=== PATIENT | female | born 1990 | race Caucasian/White ===

== ENCOUNTER 2021-03-18 12:35 | Emergency (ER) | payer SELFPAY ==
[2021-03-18 13:25] VITALS: BP 124/87; PULSE 84; RESP 18; TEMP 36.9; O2SAT 97; BMI 25.8
--- NOTE | 2021-03-18 14:22 | CT_ITS ---
WS: [id number] CT HEAD TECHNIQUE: Noncontrast CT of the head obtained from the skullbase to the vertex. CLINICAL INFORMATION: new onset seizures COMPARISON: None. DLP: 899.[address] scans at [facility] use at least one of these dose optimization techniques: automat ed exposure control; mA and/or kV adjustment per patient size (includes targeted exams where dose is matched to clinical indication); or iterative reconstruction. FINDINGS: No evidence of intracranial hemorrhage or mass effect. Ventricular system and basal cisterns are del rosario nt. No extra-axial fluid collections. No evidence of mass or mass effect. Normal araujo-white differen tiation. Paranasal sinuses and mastoid air cells are well aerated. .Normal visualized soft tissues. CT/CT head wo con* [id number] IMPRESSION: 1. No evidence of intracranial hemorrhage or mass effect. 2. No acute intracranial findings.
--- NOTE | 2021-03-18 14:23 | W.ED.GENADLT ---
HPI - General Adult General: Chief complaint: Seizure Stated complaint: SHAKING Time Seen by Provider: 03/18/21 14:03 History of Present Illness: HPI narrative: 40-year-old female presents emergency room with continuous shaking of her right leg. She said it started about 2 hours ago she felt dizzy had shaking in her right arm and leg and then it began to only affect her right leg. It is a continuous uncontrollable tonic-clonic like movement of just that leg. She not previously had a history of seizures. She denies any previous head trauma. Onset (ago): hour(s) (2) Location: right and lower extremity Severity: severe Associated symptoms: Deny no associated symptoms, chest pain, confusion, cough, diaphoresis, decreased appetite, dyspnea, fevers/chills, headache(s), malaise, nausea, rash, palpitations, seizures, short of breath, syncope, vomiting or weakness Treatments prior to arrival: none Review of Systems Const: Denies: malaise or diaphoresis ENMT: Denies: throat pain, ear or mastoid pain, nasal discharge or nasal congestion Card: Denies: chest pain, palpitations or syncope Resp: Denies: dyspnea GI: Denies: nausea or vomiting : Denies: flank pain, difficulty voiding, dysuria, urinary frequency or urinary urgency Skin/Breast: Denies: rash Neuro: Denies: headache(s) or confusion Physical Exam Const: COMMON NORMALS: no acute distress GENERAL APPEARANCE: cooperative and comfortable ORIENTATION/CONSCIOUSNESS: Yes awake, Yes oriented to person, Yes oriented to place and Yes oriented to time HENMT: COMMON NORMALS: normocephalic, atraumatic, hearing grossly normal bilaterally, external ears normal, EAC's normal, TM's normal bilaterally, Normal nasal mucous membranes and turbinates present, moist oral mucous membranes and oropharynx normal HEAD & SCALP: normocephalic and atraumatic NOSE: Normal nasal mucous membranes and turbinates present EXTERNAL EAR: Yes external ears normal EXTERNAL AUDITORY CANAL: EAC's normal TYMPANIC MEMBRANE: TM's normal bilaterally Eye: COMMON NORMALS: Equal, round and reactive pupils present, EOMs intact bilaterally, conjunctivae normal and no scleral icterus CONJUNCTIVA: Yes conjunctivae normal PUPIL: Yes Equal, round and reactive pupils present Neck/C-Spine: COMMON NORMALS: no JVD Resp: COMMON NORMALS: normal respiratory effort, No retractions, No use of accessory muscles and clear to auscultation bilaterally AUSCULTATION: clear to auscultation bilaterally Cardio: COMMON NORMALS: no JVD, regular rate, regular rhythm and No murmurs present (Cardio) RATE: regular rate RHYTHM: regular rhythm GI: COMMON NORMALS: Soft to palpation and No hepatosplenomegaly present AUSCULTATION: Yes normoactive bowel sounds PALPATION: Yes Soft to palpation, No Tenderness to palpation present (GI), No Guarding due to palpation present (GI) and Yes No hepatosplenomegaly present Extremity: COMMON NORMALS: normal to inspection, capillary refill normal, no clubbing, cyanosis or edema, no calf tenderness and no pedal edema NARRATIVE EXTREMITY EXAM: Evaluation. Uncontrollable rhythmic tonic-clonic like shaking limited to just the right lower leg no other areas were noted. Could not be stopped by holding the leg down. Cannot be stopped by distraction did eventually stop after patient was given Ativan. Neuro: SENSORIUM/ORIENTATION: Yes oriented to person, Yes oriented to place and Yes oriented to time Skin: COMMON NORMALS: no rashes or lesions noted GENERAL SKIN EXAM: no rashes or lesions noted Course Vital Signs: Vital signs: Vital Signs Temperature 98.5 F 03/18/21 13:25 Pulse Rate 102 H 03/18/21 15:48 Respiratory Rate 18 03/18/21 15:48 Blood Pressure 114/69 03/18/21 15:48 Pulse Oximetry 97 03/18/21 15:48 MDM - General Adult MDM Narrative: Medical decision making narrative: Resolved with Ativan. Discussed with Dr. Zepeda we will set her up for an EEG and follow-up with neurology she should not drive until cleared by neurology return if has further problems. Lab Data: Labs: Lab Results 03/18/21 03/18/21 Range/Units 14:35 14:35 WBC 9.8 (4.0-10.0) 10^3/ uL RBC 5.18 (4.1-5.3) 10^6/u L Hgb 14.6 (11.5-15.3) g/dL Hct 43.6 (37.0-47.0) % MCV 84.2 (81-99) fL MCH 28.2 (28.0-34.0) pg MCHC 33.5 (30.0-36.0) g/dL RDW 11.9 L (12.1-15.1) % Plt Count 250 (130-400) 10^3/c mm MPV 10.4 (7.4-10.4) fL Neut % (Auto) 84.1 % Lymph % (Auto) 10.7 % [place] % (Auto) 4.2 % Eos % (Auto) 0.2 % Baso % (Auto) 0.4 % Neut # (Auto) 8.22 H (1.8-7.7) 10^3/u L Lymph # (Auto) 1.1 (0.8-4.8) 10^3/u L [place] # (Auto) 0.4 (0.2-0.9) 10^3/u L Eos # (Auto) 0.0 (0.0-0.8) 10^3/u L Baso # (Auto) 0.0 (0.0-0.1) 10^3/u L Nucleated RBC % (a uto) 0 % Nucleated RBCs # 0.0 /100WBC Sodium 137 (136-145) mmol/L Potassium 4.2 (3.5-5.1) mmol/L Chloride 102 (98-107) mmol/L Carbon Dioxide 23 (22-29) mmol/L Anion Gap 16.2 (5-19) BUN 9 (6-20) mg/dL Creatinine 0.7 (0.5-0.9) mg/dL GFR Calculation 99.6 (90-130) mL/min Glucose 95 (65-115) mg/dL Calculated Osmolal ity 282 L (285-295) mOsm/k g Calcium 9.4 (8.5-10.5) mg/dL Magnesium 2.0 (1.7-2.3) mg/dL Total Bilirubin 0.3 (0.15-1.2) mg/dL AST 11 (0-32) U/L ALT 11 (0-33) U/L Alkaline Phosphata se 61 (35-105) IU/L Creatine Kinase 31 (26-192) U/L Total Protein 8.1 (6.6-8.7) g/dL Albumin 5.0 (3.5-5.2) g/dL Globulin 3.1 (1.3-4.6) g/dL Discharge Plan Discharge Patient Disposition: Home Clinical Impression: Simple partial seizures Condition: Stable Prescriptions: No Action fluoxetine 20 mg tablet 20 mg PO QAM RF: 0 ibuprofen 200 mg Tablet 800 mg PO PRN RF: 0 Advil PM 200-38 mg Tablet 2 tab PO PRN RF: 0 Discharge Orders: Discharge ED (Routine); Ordered 03/18/21 Ordered By: Mauri Berg Referrals: Mauri Berg, DO [Emergency Provider] - Discharge Diet: Usual diet Discharge Activity: Limit activity as instructed Patient Instructions: Opioid Safety Activity Restrictions/Additional Instructions: Case management will call to make arrangements for you to have an EEG and follow-up with neurology. You should not drive until cleared by neurology. Coding Level of Care Code ED Continuous Dryout Operator Helper for Miguel Parker
[2021-03-18] MEDS: LORazepam 2 mg/mL INJ 1 mL IVP (14:30)
[2021-03-18 14:32] VITALS: BP 112/68; PULSE 90; RESP 16; O2SAT 98
[2021-03-18 14:51] VITALS: RESP 18
[2021-03-18 14:56] LABS: Basophils % 0.4 %; Eosinophils % 0.2 %; Hematocrit 43.6 % (37.0-47.0); Hemoglobin 14.6 g/dL (11.5-15.3); Lymphocytes # 1.1 10^3/uL (0.8-4.8); Lymphocytes % 10.7 %; Mean Corpuscular HGB Conc 33.5 g/dL (30.0-36.0); Mean Corpuscular Hemoglobin 28.2 pg (28.0-34.0); Mean Corpuscular Volume 84.2 fL (81-99); Mean Platelet Volume 10.4 fL (7.4-10.4); Monocytes # 0.4 10^3/uL (0.2-0.9); Monocytes % 4.2 %; Neutrophils # 8.22 10^3/uL (1.8-7.7); Neutrophils % 84.1 %; Nucleated Red Blood Cells % 0 %; Platelet Count 250 10^3/cmm (130-400); Red Blood Count 5.18 10^6/uL (4.1-5.3); Red Cell Distribution Width 11.9 % (12.1-15.1); White Blood Count 9.8 10^3/uL (4.0-10.0)
[2021-03-18 15:00] VITALS: BP 114/69; PULSE 102; RESP 18; O2SAT 97
[2021-03-18 15:12] LABS: Alanine Aminotransferase 11 U/L (0-33); Alkaline Phosphatase 61 IU/L (35-105); Anion Gap 16.2 (5-19); Aspartate Amino Transferase 11 U/L (0-32); Blood Urea Nitrogen 9 mg/dL (6-20); Calcium 9.4 mg/dL (8.5-10.5); Carbon Dioxide 23 mmol/L (22-29); Chloride 102 mmol/L (98-107); Creatine Phosphokinase 31 U/L (26-192); Globulin 3.1 g/dL (1.3-4.6); Glomerular Filtration Rate 99.6 mL/min (90-130); Glucose 95 mg/dL (65-115); Osmolality Calculated 282 mOsm/kg (285-295); Potassium 4.2 mmol/L (3.5-5.1); Sodium 137 mmol/L (136-145); Total Bilirubin 0.3 mg/dL (0.15-1.2); Total Protein 8.1 g/dL (6.6-8.7)
[2021-03-18 15:48] VITALS: BP 114/69; PULSE 102; RESP 18; O2SAT 97
--- NOTE | 2021-03-21 11:38 | DCPLANNER ---
corporate communications manager had message to schedule a follow up appointment for patient with Dr. Zepeda and to schedule an EEG for patient. corporate communications manager emailed patients information to Yissel at Dr. Silvestre office. Patients information will be printed and reviewed. corporate communications manager also faxed an order for an EEG to the office of Dr. Zepeda.
--- NOTE | 2021-03-22 15:02 | DCPLANNER ---
Patient has a follow up appointment for an EEG scheduled for March at 10:15 - clinic will call patient with appointment information. Patient has a follow up appointment scheduled for Friday, April 23, 2021 at 11:[address] Zepeda. Clinic will call patient with appointment information.
--- NOTE | 2021-04-26 11:25 | DCPLANNER ---
Patient had a follow up appointment scheduled for an EEG on 04.04.21 - patient did not attend appointment. Patient had a follow up appointment scheduled for 04.22.[address] Zepeda - patient did not attend appointment.
== END 2021-03-18 15:49 | disposition home or self-care (01) ==
PROVIDERS: Emergency Provider Family Medicine
DX: G40.109 Localization-related (focal) (partial) symptomatic epilepsy and epileptic syndromes with simple partial seizures, not intractable, without status epilepticus (principal)
CPT/HCPCS: 70450; 80053; 82550; 83735; 85025; 96374; 99283; J2060

== ENCOUNTER 2023-03-10 13:33 | Outpatient (CLI) | payer MEDICAID, SELFPAY ==
--- NOTE | 2023-03-10 13:46 | MM_ITS ---
WS: [id number] DIAGNOSTIC BILATERAL DIGITAL BREAST TOMOSYNTHESIS MAMMOGRAPHY WITH CAD LEFT breast ultrasound, limited. HISTORY: LEFT BREAST PAIN COMPARISON: None available. TECHNIQUE: Bilateral craniocaudad, mediolateral oblique, and mediolateral views are submitted with to mosynthesis and SM. Spot compression LEFT CC. Computer aided detection utilized. Breast composition: There are scattered areas of fibroglandular density. No suspicious mass or distor tion or calcifications noted within either breast. Triangular marker is placed along the 12:00 axis o f the LEFT breast. No underlying abnormality. Ultrasound will be performed also. LEFT breast ultrasound, limited. Very dense fibroglandular breast tissue. There are multiple small cysts scattered in the upper-outer quadrant. There is a larger complex cystic mass at 12:00, 2 cm the nipple measuring 6 x 5 x 8 mm. The re is through transmission. There is an additional complex cystic collection at 2:00 near the areolar measuring 8 x 6 x 10 mm. Both of these cystic collections have thin septations and are not simple cy sts. Favor these are benign. MM/[place] [id number] IMPRESSION: BI-RADS: 3-Probably Benign FOLLOW UP: 6 Month Follow-up Recommend LEFT breast follow-up in 6 months to reevaluate the complex cystic ma sses at 12:00 and 2:00.
--- NOTE | 2023-03-10 14:55 | US_ITS ---
WS: [id number] DIAGNOSTIC BILATERAL DIGITAL BREAST TOMOSYNTHESIS MAMMOGRAPHY WITH CAD LEFT breast ultrasound, limited. HISTORY: LEFT BREAST PAIN COMPARISON: None available. TECHNIQUE: Bilateral craniocaudad, mediolateral oblique, and mediolateral views are submitted with to mosynthesis and SM. Spot compression LEFT CC. Computer aided detection utilized. Breast composition: There are scattered areas of fibroglandular density. No suspicious mass or distor tion or calcifications noted within either breast. Triangular marker is placed along the 12:00 axis o f the LEFT breast. No underlying abnormality. Ultrasound will be performed also. LEFT breast ultrasound, limited. Very dense fibroglandular breast tissue. There are multiple small cysts scattered in the upper-outer quadrant. There is a larger complex cystic mass at 12:00, 2 cm the nipple measuring 6 x 5 x 8 mm. The re is through transmission. There is an additional complex cystic collection at 2:00 near the areolar measuring 8 x 6 x 10 mm. Both of these cystic collections have thin septations and are not simple cy sts. Favor these are benign. US/US breast LT limited* [id number] IMPRESSION: BI-RADS: 3-Probably Benign FOLLOW UP: 6 Month Follow-up Recommend LEFT breast follow-up in 6 months to reevaluate the complex cystic ma sses at 12:00 and 2:00.
== END 2023-03-10 13:34 | disposition home or self-care (01) ==
LOC: RAD 13:37
PROVIDERS: PCP Nurse Practitioner; Visit Provider Nurse Practitioner
DX: N63.20 Unspecified lump in the left breast, unspecified quadrant (principal)
CPT/HCPCS: 76642; 77062; G0279

== ENCOUNTER 2023-04-14 | Outpatient (CLI) | payer MEDICAID, SELFPAY | END 2023-04-14 23:00 | disposition home or self-care (01) | LOC: RAD 04-15 14:32 | PROVIDERS: PCP Nurse Practitioner; Visit Provider Psychiatry & Neurology Neurology | DX: G40.909 Epilepsy, unspecified, not intractable, without status epilepticus (principal) | CPT/HCPCS: 36415; 80053; 81241; 82306; 82390; 82525; 82607; 82746; 83090; 83735; 83921; 84155; 84165; 84439; 84443; 84481; 85025; 85210; 85300; 85303; 85306; 85613; 85651; 85730; 86146; 86147; 86160; 86162; 86235; 86255; 86334; 86376; 86431; 86617; 86780 ==

== ENCOUNTER 2023-05-06 13:05 | Outpatient (CLI) | payer MEDICAID, SELFPAY ==
--- NOTE | 2023-05-06 13:00 | MR_ITS ---
WS: [id number] MRI BRAIN WITH AND WITHOUT CONTRAST HISTORY: G40.909 - Epilepsy, unspecified, not intractable, history of seizures. COMPARISON: Head CT TECHNIQUE: Multiplanar imaging performed through the brain with MultiHance 15 ml's IV. No acute infarcts are seen. [place]-white matter differentiation is well preserved. Normal hippocampal f ormations. No mesial temporal sclerosis. No increased CSF surrounding the hippocampal formations. No susceptibility artifacts or prior lacunar infarcts. Ventricles and extra-axial spaces are normal. Clivus and pituitary gland are normal. Visualized posterior fossa and brainstem are also normal. Postcontrast images are negative for masses or vascular malformations. Dural venous sinuses are normal. Paranasal sinuses: Well aerated with no significant disease. Mastoid air cells: Normal. Calvarium and scalp: Normal. MR/MR head wo/w con [id number] IMPRESSION: 1. Normal MRI brain with contrast. 2. Normal hippocampal formations. 3. No prior infarct or enhancing mass.
[2023-05-06] MEDS: gadobenate dimeglumine 20 mL vial IV (14:15)
== END 2023-05-06 13:06 | disposition home or self-care (01) ==
LOC: RAD 13:07
PROVIDERS: PCP Nurse Practitioner; Visit Provider Psychiatry & Neurology Neurology
DX: G40.909 Epilepsy, unspecified, not intractable, without status epilepticus (principal)
CPT/HCPCS: 70553; A9577

== ENCOUNTER → 2023-05-26 15:35 | Outpatient (BNVA) | payer MEDICAID, SELFPAY | PROVIDERS: PCP Nurse Practitioner; Visit Provider Psychiatry & Neurology Neurology | DX: R07.0 Pain in throat (principal); G40.109 Localization-related (focal) (partial) symptomatic epilepsy and epileptic syndromes with simple partial seizures, not intractable, without status epilepticus | CPT/HCPCS: 87081; 87880 ==

== ENCOUNTER → 2025-03-08 15:52 | Outpatient (BNVA) | payer BC, SELFPAY | PROVIDERS: PCP Nurse Practitioner; Visit Provider Emergency Medicine | DX: J02.9 Acute pharyngitis, unspecified (principal); B34.9 Viral infection, unspecified | CPT/HCPCS: 87071; 87400; 87426; 87880 ==